=== PATIENT | female | born 1955 | race Caucasian/White ===

== ENCOUNTER 2020-04-20 08:34 | Outpatient (REF) | payer OTHER, SELFPAY ==
--- NOTE | 2020-04-20 08:39 | XR_ITS ---
EXAMINATION: XR CHEST CLINICAL INFORMATION: Cough COMPARISON: None TECHNIQUE: 2 views of the chest were obtained. FINDINGS: Lungs are hyperexpanded. There are several scattered streaky opacities in bilateral upper and lower lung zones from atelectasis and/or infectious infiltrates. Cardiac silhouette is mildly enlarged. Aortic arch has an ectatic, uncoiled appearance. The hilar contours are normal. No overt pulmonary edema. No pleural effusion or pneumothorax. Multilevel disc space narrowing and osteophyte formation of the degenerated thoracic spine. XR/XR chest 2V IMPRESSION: * Lungs are hyperexpanded. Chronic obstructive pulmonary disease is suspected. * Scattered, streaky opacities in bilateral upper and lower lung zones from atelectasis and/or infectious infiltrates.
== END 2020-04-20 08:35 | disposition home or self-care (01) ==
LOC: HO.HMGCX 08:34
PROVIDERS: PCP Internal Medicine; Visit Provider Nurse Practitioner Family
DX: R05 Cough (principal)
CPT/HCPCS: 71046; U0003